=== PATIENT | female | born 1960 | race African-American/Black ===

== ENCOUNTER 2016-12-07 19:16 | Emergency (ER) | payer OTHER ==
[2016-12-07] MEDS ORDERED: Ketorolac 30 MG/ML SDV IVPUSH ONE (19:59)
[2016-12-07 20:33] LABS: CHLORIDE,CL 106 mmol/L (98-107); SODIUM,NA 144 mmol/L (136-145)
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
[2016-12-08 00:28] VITALS: BP 138/80
== END 2016-12-07 21:45 | disposition other institution (70) ==
LOC: VM.ED 19:16
DX: F10.129 Alcohol abuse with intoxication, unspecified (principal); I10 Essential (primary) hypertension; G43.909 Migraine, unspecified, not intractable, without status migrainosus; E11.9 Type 2 diabetes mellitus without complications; J45.909 Unspecified asthma, uncomplicated; F17.210 Nicotine dependence, cigarettes, uncomplicated; Z90.710 Acquired absence of both cervix and uterus; Z88.8 Allergy status to other drugs, medicaments and biological substances; Z88.2 Allergy status to sulfonamides; Z88.6 Allergy status to analgesic agent
CPT/HCPCS: 36415; 80048; 85025; 93005; 96372; 96374; 99284; G0480; J1885; J2360

== ENCOUNTER 2017-01-16 11:05 | Emergency (ER) | payer OTHER ==
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
[2017-01-16] MEDS ORDERED: Haloperidol Lactate 5 MG/ML SDV IM ONE (11:34)
[2017-01-16] MEDS ORDERED: LORazepam 2 MG/ML MDV IM ONE (11:35)
[2017-01-16 11:53] LABS: CHLORIDE,CL 106 mmol/L (98-107); SODIUM,NA 144 mmol/L (136-145)
[2017-01-16 18:11] VITALS: BP 122/62
== END 2017-01-16 14:30 ==
LOC: VM.ED 11:05
DX: F29 Unspecified psychosis not due to a substance or known physiological condition (principal); S61.411A Laceration without foreign body of right hand, initial encounter; F14.10 Cocaine abuse, uncomplicated; F10.921 Alcohol use, unspecified with intoxication delirium; I10 Essential (primary) hypertension; J45.909 Unspecified asthma, uncomplicated; G43.909 Migraine, unspecified, not intractable, without status migrainosus; E11.40 Type 2 diabetes mellitus with diabetic neuropathy, unspecified; Z90.49 Acquired absence of other specified parts of digestive tract
CPT/HCPCS: 12001; 36415; 80048; 80305; 81001; 85025; 86803; 87341; 87389; 96372; 99284; 99285; G0480; J1630; J2060; J3230

== ENCOUNTER 2017-01-23 11:58 | Emergency (ER) | payer OTHER ==
[2017-01-23 13:24] LABS: CHLORIDE,CL 108 mmol/L (98-107); SODIUM,NA 145 mmol/L (136-145)
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
[2017-01-23 13:51] VITALS: BP 145/67
== END 2017-01-23 14:30 ==
LOC: VM.ED 11:58
DX: F44.9 Dissociative and conversion disorder, unspecified (principal); F14.10 Cocaine abuse, uncomplicated; F10.921 Alcohol use, unspecified with intoxication delirium; I10 Essential (primary) hypertension; J45.909 Unspecified asthma, uncomplicated; G43.909 Migraine, unspecified, not intractable, without status migrainosus; M19.90 Unspecified osteoarthritis, unspecified site; F17.210 Nicotine dependence, cigarettes, uncomplicated; E11.40 Type 2 diabetes mellitus with diabetic neuropathy, unspecified; Z88.2 Allergy status to sulfonamides; Z91.040 Latex allergy status; Z88.8 Allergy status to other drugs, medicaments and biological substances; Z79.4 Long term (current) use of insulin; Z79.82 Long term (current) use of aspirin; Z79.899 Other long term (current) drug therapy; Z87.440 Personal history of urinary (tract) infections; Z90.49 Acquired absence of other specified parts of digestive tract; Z98.890 Other specified postprocedural states; Z88.6 Allergy status to analgesic agent
CPT/HCPCS: 36415; 80048; 80305; 81001; 85025; 96372; 99285; G0480; J3230

== ENCOUNTER 2017-02-16 19:24 | Emergency (ER) | payer OTHER ==
[2017-02-16 19:35] VITALS: BP 104/71
[2017-02-16] MEDS ORDERED: Insulin Glargine,Human Rec. Analog 100 Units/ML 3 ML Pen SUBCUT SCH (20:00)
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
== END 2017-02-16 20:07 | disposition home or self-care (01) ==
LOC: VM.ED 19:24
DX: Z02.89 Encounter for other administrative examinations (principal); F10.129 Alcohol abuse with intoxication, unspecified; E11.9 Type 2 diabetes mellitus without complications; I10 Essential (primary) hypertension; F41.9 Anxiety disorder, unspecified; F32.9 Major depressive disorder, single episode, unspecified; M19.90 Unspecified osteoarthritis, unspecified site; Z79.4 Long term (current) use of insulin; Z79.82 Long term (current) use of aspirin; Z88.2 Allergy status to sulfonamides; Z88.8 Allergy status to other drugs, medicaments and biological substances; Z91.040 Latex allergy status
CPT/HCPCS: 82962; 96372; 99283-GF; 99284

== ENCOUNTER 2017-10-29 15:02 | Emergency (ER) | payer OTHER ==
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
== END 2017-10-29 15:52 ==
LOC: VM.ED 15:02
DX: F32.9 Major depressive disorder, single episode, unspecified (principal); F20.9 Schizophrenia, unspecified; F10.10 Alcohol abuse, uncomplicated; Z91.5 Personal history of self-harm; I10 Essential (primary) hypertension; E11.40 Type 2 diabetes mellitus with diabetic neuropathy, unspecified; Z88.6 Allergy status to analgesic agent; Z88.1 Allergy status to other antibiotic agents; Z88.8 Allergy status to other drugs, medicaments and biological substances; Z88.2 Allergy status to sulfonamides; Z79.4 Long term (current) use of insulin; Z79.899 Other long term (current) drug therapy; Z72.0 Tobacco use
CPT/HCPCS: 96372; 99285; J3230

== ENCOUNTER 2017-12-04 19:07 | Emergency (ER) | payer OTHER ==
[2017-12-04] MEDS ORDERED: Insulin Regular, Human 10 UNIT in Dextrose 10% in Water 500 ML IV ONE ×2 (20:14)
[2017-12-04] MEDS ORDERED: Sodium Chloride 0.9% 10 ML Syringe FLUSH PRN (20:14)
[2017-12-04] MEDS ORDERED: Sodium Chloride 0.9% 2,000 ML IV ONE (20:14)
[2017-12-04 20:21] LABS: CHLORIDE,CL 92 mmol/L (98-107)
[2017-12-04] MEDS ORDERED: Insulin Regular, Human 100 Units/ML 3 ML Vial IV ONE (20:23)
[2017-12-04 20:27] LABS: SODIUM,NA 128 mmol/L (136-145)
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
[2017-12-04 21:59] VITALS: BP 144/83
== END 2017-12-04 22:05 ==
LOC: VM.ED 19:07
DX: E10.65 Type 1 diabetes mellitus with hyperglycemia (principal); E87.1 Hypo-osmolality and hyponatremia; N17.9 Acute kidney failure, unspecified; I10 Essential (primary) hypertension; Z79.82 Long term (current) use of aspirin; Z79.4 Long term (current) use of insulin; Z91.040 Latex allergy status; Z88.6 Allergy status to analgesic agent; Z88.2 Allergy status to sulfonamides; Z88.8 Allergy status to other drugs, medicaments and biological substances
CPT/HCPCS: 36415; 80053; 80305; 81001; 82800; 82962; 85025; 93005; 93010; 96361; 96365; 96375; 99285; G0480; J1815; J7030; J7050